=== PATIENT | female | born 1970 | race Caucasian/White ===

== ENCOUNTER 2018-04-23 07:48 | Outpatient (CLI) | payer BC ==
--- NOTE | 2018-04-23 09:45 | MRI ---
MRI BRAIN WITHOUT AND WITHOUT CONTRAST: History: Headache since December. Patient had heat collapse in December. Technique: Multiplanar, multisequence MRI images were obtained of the brain without and with IV contr ast. FINDINGS: The brain demonstrates normal signal intensity on all obtained sequences. No restricted diffusion or abnormal enhancement are seen on this examination. There is no evidence of hydrocephalus, intracranial hemorrhage, or extraaxial fluid collections. The expected flow voids are present. The corpus callosum, pituitary, and craniocervical junction are unre markable. The calvarium and overlying soft tissues are unremarkable. Mild mucosal thickening is seen in the max illary sinuses. The mastoid air cells are well aerated. IMPRESSION: No significant intracranial abnormality. POS: [facility]
[2018-04-23] MEDS ORDERED: Gadobenate Dimeglumine 529 MG/1 ML (20ML VIAL) ONE (16:01)
== END 2018-04-23 07:49 | disposition home or self-care (01) ==
LOC: SCSMRI 07:48
PROVIDERS: ATTEND Psychiatry & Neurology Neurology
DX: T67.1XXA Heat syncope, initial encounter (principal)
CPT/HCPCS: 70553; A9579